=== PATIENT | male | born 1940 | race Caucasian/White ===

== ENCOUNTER 2019-06-16 00:01 | Emergency (ER) | payer MEDICARE, BC ==
[2019-06-16 00:53] LABS: Bilirubin Negative (Negative); Blood, Urine Negative (Negative); Clarity Clear (Clear); Glucose, Urine (Dipstick) Negative (Negative); Leukocyte Negative (Negative); Nitrite Negative (Negative); Protein, Urine (Dipstick) Negative (Neg-Trace); Urobilinogen 0.2 mg/dL (Less than 2)
[2019-06-16 01:21] LABS: #Basophils 0.1 thou/uL (0.0-0.2); #Eosinphils 0.4 thou/uL (0.0-0.7); #Lymphocytes 2.5 thou/uL (1.20-3.40); #Monocytes 1.1 thou/uL (0.11-0.59); #Neutrophils 6.3 thou/uL (1.40-6.50); %Basophils 0.6 % (0.0-1.0); %Eosinophils 3.6 % (0.0-10.0); %Lymphocytes 24.4 % (21.0-51.0); %Monocytes 10.2 % (0.0-10.0); %Neutrophils 61.2 % (42.0-75.0); Hemoglobin 14.8 g/dL (14.0-18.0); Mean Corpuscular HGB CONC 33.1 g/dL (32.0-36.0); Mean Corpuscular Hemoglobin 29.6 pg (27.0-31.0); Mean Corpuscular Volume 89.5 fL (78.0-98.0); Mean Platelet Volume 8.6 fL (7.4-10.4); Platelet Count 197 thou/uL (130-400); RBC Distribution Width 11.7 % (11.5-14.5); White Blood Cell (WBC) Count 10.3 thou/uL (4.8-10.8)
[2019-06-16 01:31] LABS: ALT (SGPT) 20 U/L (8-55); AST (SGOT) 19 U/L (5-34); Albumin 4.5 g/dL (3.4-4.8); Alkaline Phosphatase 64 U/L (40-110); Anion Gap 15 mmol/L (10-20); BUN (Urea Nitrogen) 14 mg/dL (8.4-25.7); Bilirubin, Total 0.5 mg/dL (0.2-1.2); Calc. Creatinine Clearance 0 mL/min (70-130); Calcium 9.2 mg/dL (7.8-10.44); Carbon Dioxide 24 mmol/L (23-31); Chloride 104 mmol/L (98-107); Estimated GFR-MDRD 83; Globulin 2.1 g/dL (2.4-3.5); Glucose 102 mg/dL (83-110); Magnesium 2.2 mg/dL (1.6-2.6); Protein, Total 6.6 g/dL (5.8-8.1); Sodium 139 mmol/L (136-145)
[2019-06-16] MEDS ORDERED: Meclizine HCl 25 MG TAB ONE (01:59)
[2019-06-16] MEDS ORDERED: Aspirin Chewable 81 MG TAB ONE (01:59)
--- NOTE | 2019-06-16 06:52 | CT ---
PRELIMINARY REPORT/[facility]/EMERGENCY AFTER HOURS PROCEDURE: HISTORY: DIZZY, DIFFICULTY WALKING, ELEVATED BP CT HEAD TECHNIQUE: Without contrast COMPARISON: None. LIMITATIONS: None. BRAIN: No acute hemorrhage. Normal cheek/white matter differentiation. No mass, mass effect or midli ne shift. Normal sized sulci and cisterns for patient's age. Minimal white matter low attenuation, likely microvascular ischemic changes. VENTRICLES: No hydrocephalus. EXTRA-AXIAL SPACES: No hemorrhages, fluid collections, or masses. CALVARIUM/SKULL BASE: Normal. FACE/SINUSES: Minimal bilateral ethmoid sinus mucosal thickening. SOFT TISSUES: Normal. OTHER: Mildly calcified internal carotid arteries. CONCLUSION: No acute intracranial abnormality. ELECTRONICALLY SIGNED BY: Shalonda Lutz M.D. Jun 16, 2019 1:35:34 AM [employer] This report is intended for review by the ordering physician only, in accordance of law. If you recei ve this report in error, please call [facility] at [phone]. FINAL REPORT CT OF THE BRAIN WITHOUT CONTRAST: Date: 06/16/[address] of the brain shows normal size ventricles with no shift. No intracranial bleeding, mass, or sign of acute stroke found. No edema or other acute findings of concern. Skull normal in appearance. There is probably some minimal mucosal thickening in some of the ethmoid air cells. IMPRESSION: No acute intracranial findings. Report in agreement with preliminary reading by [facility]. POS: HOME
--- NOTE | 2019-06-16 06:56 | RAD ---
PORTABLE CHEST: Date: 06/16/2019 An AP portable film at 0110 hours was compared with a 02/21/14 study from [facility]. The heart is normal in size and the lungs are clear. No infiltrate, effusion, or other acute pulmonar y process seen. No edema or congestion. IMPRESSION: No acute thoracic findings. POS: HOME
== END 2019-06-16 02:29 | disposition short-term general hospital (02) ==
LOC: BURERS 00:01
DX: R42 Dizziness and giddiness (principal); R53.1 Weakness; I10 Essential (primary) hypertension; Z79.899 Other long term (current) drug therapy
CPT/HCPCS: 70450; 71045; 80053; 81003; 83735; 83880; 84484; 85025; 93005; 96360; J8597

== ENCOUNTER 2020-01-26 09:41 | Outpatient (CLI) | payer MEDICARE, BC ==
[~2020-01-26 09:41] MED LIST: Iopamidol 370 76% 100 ML VIAL ONE
--- NOTE | 2020-01-26 20:31 | CT ---
CT ANGIO OF THE HEAD AND NECK 01/26/[address] of the head and neck was done after a bolus of IV contrast. MIP reconstructions in various planes were made through the region. The patient presents with central vertigo. There has been an MRI in the last several months which showed no gross posterior fossa abnormality or sign of brainstem in farct. Both vertebral arteries fill normally. The left vertebral is larger than the right, a typical situati on. There is no sign of occlusion, dissection or aneurysm involving the vertebrobasilar system. Both vertebral arteries converge on a normal appearing basilar artery. Bilateral filling of each posterio r cerebral artery, superior cerebellar arteries, AICA and each PICA was seen. In the supratentorial region, both the anterior and middle cerebral arteries fill normally. There was no sign of thrombus or aneurysm. The brain itself as part of this study showed no acute changes. No specific posterior fossa abnormali ty was appreciated. The carotid system was unremarkable. There was no sign of stenosis in either common carotid, internal carotid, or external carotid arteries. IMPRESSION: No evidence of vertebrobasilar pathology that would explain the patient's central vertigo. If symptom s have worsened over time, it may be worth a repeat MRI to take another look at the posterior fossa a nd brain stem. POS: HOME
== END 2020-01-26 09:42 | disposition home or self-care (01) ==
LOC: BURCT 09:41
PROVIDERS: ATTEND Family Medicine
DX: Z01.818 Encounter for other preprocedural examination (principal); H81.4 Vertigo of central origin
CPT/HCPCS: 36415; 70496; 70498; 82565; Q9967

== ENCOUNTER 2021-09-09 13:56 | Outpatient (CLI) | payer MEDICARE, BC | END 2021-09-09 13:57 | disposition home or self-care (01) | LOC: BURRAD 13:56 | PROVIDERS: ATTEND Family Medicine | DX: M25.562 Pain in left knee (principal) ==